=== PATIENT | female | born 1975 | race Native Hawaiian/Other Pacific Islander ===

== ENCOUNTER 2016-04-01 00:59 | Outpatient (CLI) | payer SELFPAY ==
[2016-04-01] MEDS ORDERED: LACTATED RINGERS 1,000 ML IV ONE (02:07)
[2016-04-01 02:27] VITALS: BP 129/62
[2016-04-01 04:21] LABS: Bacteria,Urine 1+ /HPF (Negative); Bilirubin,Urine NEG (Negative); Blood,Urine LG (Negative); Ketones,Urine NEG (Negative); Leukocyte Esterase,Urine NEG (Negative); Nitrite,Urine NEG (Negative); Protein,Urine <15 mg/dL mg/dL (Negative); RBC,Urine < 1.0 /HPF (0.0-6.0); Urobilinogen,Urine < 2.0 mg/dL (<2.0)
== END 2016-04-01 05:16 | disposition home or self-care (01) ==
LOC: TRG 00:59
PROVIDERS: ATTEND Specialist
DX: O47.9 False labor, unspecified (principal); Z3A.00 Weeks of gestation of pregnancy not specified
CPT/HCPCS: 81001

== ENCOUNTER 2016-05-26 15:55 | Outpatient (CLI) | payer SELFPAY ==
[2016-05-26 16:48] VITALS: BP 142/75
== END 2016-05-26 17:47 | disposition home or self-care (01) ==
LOC: TRG 15:55
PROVIDERS: ATTEND Specialist
DX: O48.0 Post-term pregnancy (principal); Z3A.40 40 weeks gestation of pregnancy
CPT/HCPCS: 59025; 82962

== ENCOUNTER 2016-05-27 22:22 | Outpatient (CLI) | payer SELFPAY | END 2016-05-28 01:15 | disposition home or self-care (01) | LOC: TRG 22:22 | PROVIDERS: ATTEND Specialist | DX: O09.523 Supervision of elderly multigravida, third trimester (principal); O48.0 Post-term pregnancy; Z3A.40 40 weeks gestation of pregnancy | CPT/HCPCS: 59025; 82962 ==

== ENCOUNTER 2016-05-28 22:51 | Inpatient (IN) | payer OTHER ==
[2016-05-28] MEDS ORDERED: LACTATED RINGERS 1,000 ML ONE (23:08)
[2016-05-28] MEDS ORDERED: POLYCILLIN/NS 2 GM/100 ML 2 GM/100 ML BAG IV ONE ×2 (23:19→23:27)
[2016-05-28] MEDS ORDERED: STADOL IV PRN (23:27)
[2016-05-28] MEDS ORDERED: SUBLIMAZE IV PRN (23:27)
[2016-05-28] MEDS ORDERED: LACTATED RINGERS 1,000 ML IV SCH (23:45)
[2016-05-28] MEDS ORDERED: PITOCin/NS 20 UNIT/1000ML DRIP 20 UNITS/1,000 ML BAG IV SCH (23:45)
[2016-05-29 00:11] LABS: Basophils % (Auto) 0.3 % (0.0-1.8); Eosinophils % (Auto) 0.2 % (0.0-4.3); Hematocrit 36.8 % (30.3-42.9); Hemoglobin 11.9 gm/dl (10.1-14.3); Mean Corpuscular HGB Conc 33 % (30-34); Mean Corpuscular Hemoglobin 28 pg (28-32); Mean Corpuscular Volume 87 fl (79-97); Platelet Count 248 K/mm3 (140-440); Red Blood Count 4.24 M/mm3 (3.65-5.03); Red Cell Distribution Width 15.4 % (13.2-15.2); White Blood Count 15.5 K/mm3 (4.5-11.0)
[2016-05-29 00:35] LABS: Alanine Aminotransferase 16 units/L (7-56)
[2016-05-29] MEDS ORDERED: ePHEDrine SULFATE ONE (00:40)
[2016-05-29] MEDS ORDERED: ePHEDrine SULFATE IV PRN ×2 (00:46→01:24)
[2016-05-29] MEDS ORDERED: BRETHINE IVP PRN (00:46)
[2016-05-29] MEDS ORDERED: ZOFRAN IV PRN ×4 (00:46→16:43)
[2016-05-29] MEDS ORDERED: NARCAN 0.4 MG/1 ML IV PRN ×4 (00:46→16:43)
[2016-05-29] MEDS ORDERED: XYLOCAINE 2% INFILTRATI ONE (00:46)
[2016-05-29] MEDS ORDERED: MINERAL OIL PO PRN (00:46)
[2016-05-29] MEDS ORDERED: BRETHINE SUB-Q PRN (00:46)
--- NOTE | 2016-05-29 00:54 | History and Physical Report ---
History of Present Illness Date of examination: 05/29/16 Date of admission: 05/28/16 23:13 Chief complaint: uterine contractions. care at [facility]. Complicated by GDM. Past History Past Medical History: diabetes (gestaional on diet- no meds) STORE HAND History: other (hx of ectopic ) Family/Genetic History: hypertension Social history: no significant social history - Obstetrical History Expected Date of Delivery: 05/26/16 Actual Gestation: 40 Week(s) 3 Day(s) : 3 Number of Living Children: 0 Medications and Allergies Allergies Allergy/AdvReac Type Severity Reaction Status Date / Time No Known Allergies Allergy Unverified 04/01/16 00:59 Active Meds: Active Medications Butorphanol Tartrate (Stadol) 2 mg IV Q2H PRN PRN Reason: Labor Pain Fentanyl (Sublimaze) 100 mcg IV Q1H PRN PRN Reason: Labor Pain Oxytocin/Sodium Chloride (Pitocin/Ns 20 Unit/1000ml Drip) 20 units in 1,000 mls @ 125 mls/hr IV DIRECT LEAH Ampicillin Sodium (Polycillin/Ns 1 Gm/50 Ml) 1 gm in 50 mls @ 100 mls/hr IV Q4H LEAH Lactated Ringer's (Lactated Ringers) 1,000 mls @ 125 mls/hr IV DIRECT LEAH Review of Systems All systems: negative Gastrointestinal: abdominal pain - Vital Signs Vital signs: Vital Signs Pulse BP 105 H 149/94 05/28/16 23:05 05/28/16 23:05 Temp Pulse Resp BP Pulse Ox 98.4 F 105 H 18 146/78 98 05/28/16 23:21 05/29/16 00:48 05/28/16 23:21 05/29/16 00:26 05/29/16 00:48 - Physical Exam Breasts: Positive: deferred Cardiovascular: Regular rate, Normal S1, Normal S2 Abdomen: Positive: normal appearance, soft, normal bowel sounds. Negative: distention, tenderness Vulva: both: normal Vagina: Positive: normal moisture. Negative: discharge Cervix: Negative: lesion, discharge Uterus: Positive: normal size, normal contour Adnexa: both: normal Anus/Rectum: Positive: normal perianal skin, heme negative. Negative: rectal mass, hemorrhoids Extremities: Deep Tendon Reflex Grade: Normal +2 - Obstetrical FHR: category 1 Uterine Contraction Monitor Mode: External Cervical Dilatation: 6 Cervical Effacement Percentage: 80 station: -3 Results Result Diagrams: 05/28/16 23:30 05/28/16 23:30 Abnormal lab results 05/28/16 05/28/16 Range/Units 23:30 23:30 WBC 15.5 H (4.5-11.0) K/mm3 RDW 15.4 H (13.2-15.2) % [place] # 1.0 H (0.0-0.8) K/mm3 Seg Neutrophils % 79.5 H (40.0-70.0) % Seg Neutrophils # 12.4 H (1.8-7.7) K/mm3 Creatinine 0.6 L (0.7-1.2) mg/dL AST 82 H (5-40) units/L All other labs normal. Assessment and Plan iup at term, Hx of GDM, presents in active labor. Mild elevationof BP noted, will monitor. anticipating .
[2016-05-29] MEDS ORDERED: LACTATED RINGERS 1,000 ML IV SCH ×2 (01:00→03:00)
[2016-05-29] MEDS ORDERED: PITOCin/NS 30 UNIT/500ML 30 UNITS/500 ML BAG IV SCH (01:00)
[2016-05-29] MEDS ORDERED: PITOCin/NS 20 UNIT/1000ML DRIP 20 UNITS/1,000 ML BAG IV SCH ×2 (01:00→13:00)
[2016-05-29] MEDS ORDERED: NARCAN 2 MG/2 ML IV PRN (01:24)
--- NOTE | 2016-05-29 01:24 | Anesthesia Consultation ---
Anesthesia Consult and Med Hx Date of service: 05/29/16 - Airway Anesthetic Teeth Evaluation: Good ROM Head & Neck: Adequate Mental/Hyoid Distance: Adequate Mallampati Class: Class II Intubation Access Assessment: Good - Pulmonary Exam CTA: Yes - Cardiac Exam Cardiac Exam: No Murmur - Pre-Operative Health Status ASA Pre-Surgery Classification: ASA2 Proposed Anesthetic Plan: Epidural - Pulmonary Hx Asthma: No COPD: No Hx Pneumonia: No - Cardiovascular System Hx Hypertension: No - Central Nervous System Hx Seizures: No Hx Psychiatric Problems: No - Endocrine Hx Renal Disease: No Hx End Stage Renal Disease: No Hx Hypothyroidism: No Hx Hyperthyroidism: No - Hematic Hx Anemia: No Hx Sickle Cell Disease: No - Other Systems Hx Alcohol Use: No
[2016-05-29] MEDS: PITOCin/NS 30 UNIT/500ML 30 UNITS/500 ML BAG IV SCH ×3 (01:45→08:46)
[2016-05-29] MEDS ORDERED: fentaNYL-BUPIV 2 MCG/ML-0.125% 200 MCG/100 ML BAG EPIDURAL SCH (03:00)
[2016-05-29 03:45] LABS: Lactate Dehydrogenase 947 units/L (91-180); Uric Acid 4.9 mg/dL (3.5-7.6)
[2016-05-29 04:28] LABS: Bacteria,Urine 1+ /HPF (Negative); Bilirubin,Urine NEG (Negative); Blood,Urine SM (Negative); Ketones,Urine TR mg/dL (Negative); Leukocyte Esterase,Urine NEG (Negative); Nitrite,Urine NEG (Negative); Protein,Urine <15 mg/dL mg/dL (Negative); Urobilinogen,Urine < 2.0 mg/dL (<2.0)
[2016-05-29] MEDS: POLYCILLIN/NS 1 GM/50 ML 1 GM/50 ML BAG IV SCH ×2 (04:46→08:50)
[2016-05-29] MEDS ORDERED: PEPCID IV ONE (10:37)
[2016-05-29] MEDS ORDERED: BICITRA ONE (10:37)
[2016-05-29] MEDS ORDERED: REGLAN ONE (10:37)
--- NOTE | 2016-05-29 10:49 | Anesthesia Day of Surgery ---
Anesthesia Day of Surgery - Day of Surgery Patient Examined: Yes Patient H&P Reviewed: Yes Patient is NPO: Yes
[2016-05-29] MEDS ORDERED: XYLOCAINE MPF 2% ONE ×2 (10:51→11:10)
--- NOTE | 2016-05-29 10:56 | Event Note ---
Date: 05/29/16 pt has had arrest of descent for nearly two hours of pushing. pt has decided she wishes to proceed with c/s as opposed to pushing for another hour. Infant has significant caput. Disussed with patient in [place] risk and benefits of surgery. Consents have been signed.
[2016-05-29] MEDS ORDERED: MORPHINE ONE (11:10)
[2016-05-29] MEDS ORDERED: WATER FOR IRRIG STERILE IR ONE (11:20)
[2016-05-29] MEDS ORDERED: NACL 0.9% IR ONE (11:20)
[2016-05-29] MEDS ORDERED: DIPRIVAN 10 MG/ML IV ONE (11:24)
[2016-05-29] MEDS ORDERED: KETALAR ONE (11:35)
[2016-05-29] MEDS ORDERED: VERSED ONE (11:37)
[2016-05-29] MEDS ORDERED: TORADOL ONE (12:06)
[2016-05-29] MEDS ORDERED: ZOFRAN ONE (12:07)
[2016-05-29] MEDS ORDERED: LANSINOH TP PRN (12:29)
[2016-05-29] MEDS ORDERED: TUCKS PAD TP PRN (12:29)
[2016-05-29] MEDS ORDERED: TORADOL IV PRN (12:29)
[2016-05-29] MEDS ORDERED: MILK OF MAGNESIA PO PRN (12:29)
[2016-05-29] MEDS ORDERED: MORPHINE IV PRN (12:29)
[2016-05-29] MEDS ORDERED: MYLICON PO PRN (12:29)
--- NOTE | 2016-05-29 12:41 | Procedure Note ---
OB Delivery Note - Delivery Date of Delivery: 05/29/16 Surgeon: ADIS LEAL Estimated blood loss: other (600ml) - Section Preop diagnosis: arrest of descent Postop diagnosis: same section procedure: section, primary low transverse Disposition: PACU Complications: none - A at 1 minute: 9 at 5 minutes: 9 Gender: Female (wt 6-6, and mother tolerated the procedure well. nicu present meconium particulate meconium fluid noted.)
--- NOTE | 2016-05-29 12:44 | Operative Report ---
Operative Report Operative Report: Preoperative diagnoses- Intrauterine at 40 3/7 weeks, arrest of descent Postoperative diagnoses- same Procedure- primary low segment transverse section Surgeon- Dr. Josephine Obregon Anesthesia- Spinal/epidural Findings- live female weight 6-6, meconium stained fluid, normal tubes and ovaries Estimated blood loss- 600ml Complications- none Instrument count- Correct Pathology specimens- Placenta to pathology Patient was taken to the OR. Spinal/epidural anesthesia was instituted. Patient was then placed in the dorsolithotomy position and Carranza catheter was placed. Patient was then returned to the supine position and prepped and draped in usual sterile fashion. Level of anesthesia was checked and found to be adequate. Pfannenstiel skin incision was made. The incision was extended through the subcutaneous tissues to the fascia. Which was incised transversely using Mayos and pickups with teeth. The fascia was from the underlying muscle using Kochers and Bovie cautery. The rectus muscle was then in the midline. The peritoneum was visualized, grasped with hemostats and opened using the Metzenbaum scissors. Upon entering the peritoneal cavity an lizzette retractor was placed appropriately. A curvilinear incision was made with Metzenbaum scissors and a smooth pickup. A bladder flap was developed, a curvilinear incision was made in the lower uterine segment using a scalpel. The uterine cavity was entered bluntly with the surgeon's finger and the incision was enlarged. The Head of the was delivered . The mouth and nose were suctioned and the remainder of the body was delivered . The cord was doubly clamped and cut . was given to the waiting team. The cord blood was obtained. The placenta was then delivered manually. The uterus is cleaned with a moist wet lap tape. The first layer of the uterus is closed with 0 Vicryl running interlocking stitch. The second layer of the uterus was closed with a 0 Vicryl horizontal imbricating stitch. The pelvic gutters were cleaned . Next the adnexa were examined and found to be normal. Next the fascia was closed with 0 Vicryl running suture. Next the subcutaneous tissue was reapproximated with 3-0 Vicryl running suture. The skin was reapproximated with a 4-0 Vicryl subcuticular stitch. Mastisol and Steri-Strips were placed . A pressure dressing was applied. The patient was transferred to recovery room in stable condition.
[2016-05-29] MEDS ORDERED: SODIUM CHLORIDE FLUSH SYRINGE 10 ML IV SCH (13:00)
[2016-05-29] MEDS: PERCOCET 5/325 PO PRN (16:30)
[2016-05-29] MEDS ORDERED: BENADRYL IV PRN (16:43)
[2016-05-29] MEDS ORDERED: NACL 0.9% 1000 ML 1,000 ML IV SCH ×2 (16:43→17:00)
[2016-05-29] MEDS ORDERED: MORPHINE PCA 30MG/30ML IV SCH ×2 (16:43)
[2016-05-29] MEDS: ANCEF/NS 1 GM/50 ML 1 GM/50 ML BAG IV SCH (18:03)
[2016-05-30] MEDS: ANCEF/NS 1 GM/50 ML 1 GM/50 ML BAG IV SCH (04:39)
[2016-05-30 05:38] LABS: Hematocrit 26.1 % (30.3-42.9); Hemoglobin 8.7 gm/dl (10.1-14.3)
--- NOTE | 2016-05-30 06:38 | Progress Note ---
Assessment and Plan pod 1 s/p primary c/s. Anemia noted from delivery. iron started. Subjective - Subjective Date of service: 05/30/16 Principal diagnosis: pod 1 s/p primary c/s Interval history: routine pp care Patient reports: appetite normal, voiding normally, pain well controlled [place]: doing well Objective - Vital Signs Latest vital signs: Vital Signs Temp Pulse Pulse Resp BP BP Pulse Ox 05/30/16 00:45 99.0 F 101 H 18 147/75 05/29/16 20:25 98.6 F 100 H 18 138/78 05/29/16 20:00 20 05/29/16 18:00 18 05/29/16 16:30 18 05/29/16 16:25 97.8 F 101 H 18 141/71 101 H 05/29/16 13:40 98.8 F 93 H 18 138/73 05/29/16 13:22 92 H 22 121/74 97 05/29/16 13:08 18 05/29/16 13:00 98.6 F 132/74 05/29/16 12:45 99.0 F 94 H 22 124/77 98 05/29/16 12:30 74 22 127/74 96 05/29/16 12:25 95 H 21 135/76 98 05/29/16 12:20 98.7 F 91 H 18 125/77 100 05/29/16 10:17 62 93 05/29/16 10:14 66 89 05/29/16 10:12 85 97 05/29/16 10:07 109 H 98 05/29/16 10:06 72 L 05/29/16 10:05 107 H 132/64 05/29/16 10:02 96 H 96 05/29/16 09:57 80 87 05/29/16 09:56 78 L 05/29/16 09:51 52 L 93 05/29/16 09:50 104 H 97 05/29/16 09:35 105 H 143/64 05/29/16 09:06 108 H 127/77 05/29/16 08:44 112 H 124/60 05/29/16 08:35 113 H 148/65 05/29/16 08:25 109 H 98 05/29/16 08:20 111 H 99 05/29/16 08:15 113 H 98 05/29/16 08:10 113 H 99 05/29/16 08:06 112 H 142/81 05/29/16 08:05 120 H 99 05/29/16 08:00 109 H 99 05/29/16 07:55 112 H 99 05/29/16 07:50 90 100 05/29/16 07:45 109 H 97 05/29/16 07:40 106 H 98 05/29/16 07:36 101 H 140/78 05/29/16 07:35 106 H 98 05/29/16 07:30 104 H 98 05/29/16 07:25 106 H 98 05/29/16 07:20 102 H 98 05/29/16 07:15 105 H 98 05/29/16 07:10 100 H 97 05/29/16 07:07 98.2 F 103 H 18 128/69 97 05/29/16 07:05 99 H 128/69 98 05/29/16 07:00 101 H 98 05/29/16 06:55 101 H 98 05/29/16 06:50 104 H 98 05/29/16 06:48 103 H 137/77 05/29/16 06:45 105 H 99 05/29/16 06:40 99 H 98 Intake and Output 05/29/16 05/29/16 05/30/16 14:59 22:59 06:59 Intake Total 1500 784 120 Output Total 925 250 Balance 575 534 120 Intake: IV 1500 124 ANCEF/NS 1 GM/50 ML 1 gm 50 In 50 ml @ 100 mls/hr IV Q8H LEAH Rx#:[id number] NaCl 0.9% 1000 ml 1,000 74 ml @ 42 mls/hr IV DIRECT LEAH Rx#:[id number] Oral 660 120 Output: Urine 925 250 Indwelling Catheter 600 250 Other: Total, Intake Amount 120 120 Total, Output Amount 600 250 - Exam Breasts: Present: deferred Cardiovascular: Present: Regular rate, Normal S1, Normal S2 Lungs: Present: Clear to auscultation Abdomen: Present: normal appearance, soft Vulva: both: normal Uterus: Present: normal, firm Extremities: Present: normal Deep Tendon Reflex Grade: Normal +2 Incision: Present: normal, dry, intact - Labs Labs: Abnormal lab results 05/30/16 Range/Units 05:02 Hgb 8.7 L D (10.1-14.3) gm/dl Hct 26.1 L D (30.3-42.9) %
--- NOTE | 2016-05-30 09:21 | Progress Note ---
Subjective Date of service: 05/30/16 Principal diagnosis: pod 1 s/p primary c/s Interval history: 1st POD after Patient is in the bed, comfortable. Pain is well controlled with pain meds. Epidural catheter has been removed before. No residual neurological deficit. No anesthesia complications Objective - Constitutional Vitals: Vital Signs - 12hr 05/30/16 05/30/16 05/30/16 00:45 04:30 08:20 Temperature 99.0 F 98.3 F 98.3 F Pulse Rate [ 101 H 97 H 93 H From Monitor] Respiratory 18 18 20 Rate Blood Pressure 147/75 140/67 118/65 [Left Arm] - Labs CBC & Chem 7: 05/30/16 05:02 05/28/16 23:30 Labs: Abnormal lab results 05/30/16 Range/Units 05:02 Hgb 8.7 L D (10.1-14.3) gm/dl Hct 26.1 L D (30.3-42.9) %
[2016-05-30] MEDS: FEOSOL PO SCH ×2 (10:14→22:11)
[2016-05-30] MEDS: PERCOCET 5/325 PO PRN ×2 (15:04→19:26)
[2016-05-30] MEDS: MOTRIN PO PRN ×2 (15:04→22:12)
[2016-05-31] MEDS: PERCOCET 5/325 PO PRN ×4 (02:30→22:15)
--- NOTE | 2016-05-31 07:24 | Progress Note ---
Assessment and Plan pod 2 s/p primary c/s. doing well. Subjective - Subjective Date of service: 05/31/16 Principal diagnosis: pod 2 s/p primary c/s Interval history: routine pp care Patient reports: appetite normal, voiding normally, pain well controlled : doing well Objective - Vital Signs Latest vital signs: Vital Signs Temp Pulse Resp BP 05/31/16 02:30 18 05/31/16 00:45 97.8 F 85 18 121/69 05/30/16 22:12 18 05/30/16 19:26 18 05/30/16 16:14 98.4 F 94 H 20 140/77 05/30/16 08:20 98.3 F 93 H 20 118/65 Intake and Output 05/30/16 05/31/16 05/31/16 22:59 06:59 14:59 Intake Total 720 240 Balance 720 240 Intake: Oral 720 240 Other: Total, Intake Amount 240 120 # Voids Void 1 1 - Exam Breasts: Present: deferred Cardiovascular: Present: Regular rate, Normal S1, Normal S2 Lungs: Present: Clear to auscultation Abdomen: Present: normal appearance, soft Vulva: both: normal Uterus: Present: normal, firm Extremities: Present: normal Incision: Present: normal, dry, intact - Labs Labs: Abnormal lab results 05/30/16 Range/Units 20:04 POC Glucose 113 H (70-105)
[2016-05-31] MEDS: MOTRIN PO PRN ×3 (08:19→20:23)
--- NOTE | 2016-05-31 09:21 | Discharge Summary ---
Providers - Providers Date of Admission: 05/28/16 23:13 Date of discharge: 06/01/16 Attending physician: ADIS LEAL Primary care physician: ADIS LEAL Hospitalization Reason for admission: active labor Delivery: Procedure: section, primary low transverse Procedure details: primary c/s for arrest of descent Episiotomy: none Laceration: none Incision: normal Other procedures: none complications: none Discharge diagnosis: IUP at term delivered Hospital course: routine post op course. blood sugars well controlled Condition at discharge: Good Disposition: DISCHARGED TO HOME OR SELFCARE - Discharge Diagnoses (1) Status post primary low transverse section Status: Acute (2) Anemia Status: Acute Qualifiers: Anemia type: A Iron deficiency anemia type: I Vitamin B12 deficiency anemia type: V Folate deficiency anemia type: F Bone marrow failure anemia type: B Hemolytic anemia type: H Other causes of anemia: O Comment: secondary to the blood loss of surgery (3) Gestational diabetes mellitus Status: Acute Qualifiers: Gestational diabetes mellitus control: G Trimester: T Plan - Discharge Medications Prescriptions: Ferrous Sulfate [Feosol 325 MG tab] 325 mg PO BID #60 tablet Ibuprofen [Motrin 800 MG tab] 800 mg PO Q8HR PRN #30 tablet PRN Reason: Pain oxyCODONE /ACETAMINOPHEN [Percocet 5/325] 1 tab PO Q6HR PRN #30 tablet PRN Reason: Pain - Provider Discharge Summary Activity: routine, no sex for 6 weeks, no heavy lifting 4 weeks, no strenuous exercise Diet: routine Instructions: routine Additional instructions: [] Smoking cessation referral if applicable(refer to patient education folder for contact #) [] Refer to [facility] Booklet Call your doctor immediately for: * Fever > 100.5 * Heavy vaginal bleeding ( >1 pad per hour) * Severe persistent headache * Shortness of breath * Reddened, hot, painful area to leg or breast * Drainage or odor from incision. * Keep incision clean and dry at all times and follow doctor's instructions regarding bathing/showering - Follow up plan Follow up: ADIS LEAL MD [Primary Care Provider] - 14 Days
[2016-05-31] MEDS: FEOSOL PO SCH ×2 (10:48→22:14)
[2016-05-31] MEDS: TRIPLE ANTIBIOTIC TP SCH ×2 (16:07→22:14)
[2016-06-01] MEDS: PERCOCET 5/325 PO PRN (08:19)
[2016-06-01] MEDS: MOTRIN PO PRN (08:20)
[2016-06-01] MEDS: TRIPLE ANTIBIOTIC TP SCH (08:28)
[2016-06-01] MEDS: FEOSOL PO SCH (10:34)
[2016-06-01 12:10] VITALS: BP 140/70
== END 2016-06-01 12:30 | disposition home or self-care (01) | DRG 765 ==
LOC: TRG 22:51 → LD 23:13 → APU 05-29 11:07 → OB 05-29 14:10
PROVIDERS: ADMIT Specialist; ATTEND Specialist
PROC: 10D00Z1 Extraction of Products of Conception, Low, Open Approach (ICD-10-PCS; principal; 2016-05-29)
DX: O24.420 Gestational diabetes mellitus in childbirth, diet controlled (principal); D62 Acute posthemorrhagic anemia; Z3A.40 40 weeks gestation of pregnancy; Z37.0 Single live birth; O90.81 Anemia of the puerperium; Z82.49 Family history of ischemic heart disease and other diseases of the circulatory system
CPT/HCPCS: 36415; 81001; 82565; 82962; 83615; 84450; 84460; 84550; 85014; 85018; 85025; 86850; 86900; 86901; 88307; 99211; A6250; G0463; J0290; J0690; J1885; J2250; J2270; J2405; J2590; J2704; J2765; J7030; J7120